=== PATIENT | male | born 1965 | race American Indian/Alaskan Native ===

== ENCOUNTER 2017-10-05 07:40 | Observation (INO) | payer MEDICAID, OTHER ==
[2017-10-05 07:40] VITALS: BMI 17.1
--- NOTE | 2017-10-05 08:41 | ED PDOC ---
HPI: Chest Pain Time Seen by Provider: 10/05/17 08:11 Chief Complaint (Nursing): Chest Pain Additional Complaint(s): 52-year-old male, with no significant past medical history, presenting for evaluation of left sided sharp chest pain since this morning. Patient reports similar previous episodes. Denies any shortness of breath or cough. While in ED , patient was diaphoretic and bradycardic with heart rate of 42. PMD: Dr. Maritza Nassar Past Medical History Reviewed: Historical Data, Nursing Documentation, Vital Signs Vital Signs: Last Vital Signs Temp 97.0 F L 10/05/17 07:57 Pulse 48 L 10/05/17 08:00 Resp 20 10/05/17 07:57 BP 128/70 10/05/17 08:00 Pulse Ox 94 L 10/05/17 08:42 - Medical History PMH: Depression, Hypercholesterolemia Denies: Alzheimer's Disease, Asthma, Atrial Fibrillation, Bronchitis, CAD, Cardia Arrhythmia, CHF, COPD, Dementia, Emphysema, HIV, HTN, Hyperthyroidism, Hypothyroidism, Kidney Stones, Migraine, Mitral Valve Prolapse, Multiple Sclerosis, Parkinson's Disease, Peripheral Edema, Pneumonia, Pulmonary Embolism , Chronic Kidney Disease, Seizures, Sleep Apnea, TIA - Surgical History Surgical History: No Surg Hx Denies: Pacemaker - Family History Family History: States: [place], CAD, Diabetes, Hypertension - Immunization History Hx Tetanus Toxoid Vaccination: No Hx Influenza Vaccination: No Hx Pneumococcal Vaccination: No - Home Medications Home Medications: Ambulatory Orders Medication Instructions Recorded No Known Home Med 04/27/16 - Allergies Allergies/Adverse Reactions: Allergies Allergy/AdvReac Type Severity Reaction Status Date / Time No Known Allergies Allergy Verified 10/05/17 08:07 Review of Systems ROS Statement: Except As Marked, All Systems Reviewed And Found Negative Constitutional: Positive for: Sweats Cardiovascular: Positive for: Chest Pain, Other (bradycardia) Respiratory: Negative for: Cough, Shortness of Breath Physical Exam - Reviewed Nursing Documentation Reviewed: Yes Vital Signs Reviewed: Yes - Physical Exam Appears: Positive for: Non-toxic, No Acute Distress Head Exam: Positive for: ATRAUMATIC, NORMAL INSPECTION, NORMOCEPHALIC Skin: Positive for: Normal Color, Warm, Dry. Negative for: Rash Eye Exam: Positive for: EOMI, Normal appearance, PERRL ENT: Positive for: Normal ENT Inspection Neck: Positive for: Normal, Painless ROM, Supple Cardiovascular/Chest: Positive for: Bradycardia (regular rhythm) Respiratory: Positive for: Normal Breath Sounds. Negative for: Respiratory Distress Gastrointestinal/Abdominal: Positive for: Normal Exam, Soft. Negative for: Tenderness Back: Positive for: Normal Inspection. Negative for: L CVA Tenderness, R CVA Tenderness, Vertebral Tenderness Extremity: Positive for: Normal ROM. Negative for: Pedal Edema, Deformity Neurologic/Psych: Positive for: Alert, Oriented - Laboratory Results Result Diagrams: 10/05/17 08:22 10/05/17 08:22 - ECG O2 Sat by Pulse Oximetry: 94 (RA) Pulse Ox Interpretation: Normal Medical Decision Making Medical Decision Making: Plan: -EKG -CMP -Drug screen -Troponin I -Urine dipstick -CBC -CXR -Reevaluation Scribe Attestation: Documented by Javed Tripathi, acting as a scribe for Krish Mcgee MD. Provider Scribe Attestation: All medical record entries made by the Scribe were at my direction and personally dictated by me. I have reviewed the chart and agree that the record accurately reflects my personal performance of the history, physical exam, medical decision making, and the department course for this patient. I have also personally directed, reviewed, and agree with the discharge instructions and disposition. Disposition - Clinical Impression Clinical Impression: Chest pain - Patient ED Disposition Is Patient to be Admitted: Yes - Disposition Disposition Time: 09:53 Condition: FAIR Forms: [employer] (Occitan) - Pt Status Changed To: Hospital Disposition Of: Observation - POA Present On Arrival: None
--- NOTE | 2017-10-05 09:05 | RAD ---
Date of service: 10/05/2017 HISTORY: Chest pain COMPARISON: Portable chest 01/21/2016. TECHNIQUE: Chest PA and lateral FINDINGS: LUNGS: No active pulmonary disease. PLEURA: No significant pleural effusion identified. No pneumothorax apparent. CARDIOVASCULAR: Cardiac silhouette appears upper limits normal size. OSSEOUS STRUCTURES: No significant abnormalities. VISUALIZED UPPER ABDOMEN: Normal. OTHER FINDINGS: None. IMPRESSION: No interval acute cardiopulmonary disease appreciated. Upper limits normal cardiac size reiterated. No pulmonary vascular congestion.
[2017-10-05 09:23] LABS: BASO % 0.5 % (0.0-2.0); EOS # 0.1 K/uL (0.0-0.7); EOS % 1.3 % (0.0-4.0); HEMOGLOBIN 14.6 g/dL (12.0-18.0); LYMPH # 1.5 K/uL (1.0-4.3); MEAN CELL VOLUME 89.9 fl (80.0-94.0); MEAN CORPUSCULAR HEMOGLOBIN 29.8 pg (27.0-31.0); MEAN CORPUSCULAR HGB CONC 33.2 g/dL (33.0-37.0); MEAN PLATELET VOLUME 8.3 fl (7.2-11.7); MONO # 0.6 K/uL (0.0-0.8); MONO % 14.9 % (0.0-10.0); NEUT # 1.8 K/uL (1.8-7.0); NEUT % 46.3 % (50.0-75.0); RBC 4.91 Mil/uL (4.40-5.90); RED CELL DISTRIBUTION WIDTH 12.9 % (11.5-14.5)
[2017-10-05 09:37] LABS: ALB/GLOB RATIO 1.2 (1.0-2.1); ALBUMIN 4.3 g/dL (3.5-5.0); ALT/SGPT 42 U/L (21-72); AST/SGOT 35 U/L (17-59); BLOOD UREA NITROGEN 22 mg/dl (9-20); GFR AFRICAN-AMERICAN > 60; GFR NON-AFRICAN AMERICAN > 60
[2017-10-05 11:03] LABS: BARBITURATES, UR NEGATIVE (NEGATIVE); BENZODIAZEPINES, UR NEGATIVE (NEGATIVE); OPIATES, UR POSITIVE (NEGATIVE); PHENCYCLIDINE, UR NEGATIVE (NEGATIVE)
[2017-10-06 05:51] LABS: BLOOD UREA NITROGEN 24 mg/dl (9-20); CALCIUM 9.9 mg/dL (8.4-10.2); GFR AFRICAN-AMERICAN > 60; GFR NON-AFRICAN AMERICAN > 60; HDL CHOLESTEROL 46 MG/DL (30-70)
[2017-10-06 06:01] LABS: LDL CHOLESTEROL 121 mg/dL (0-129)
[2017-10-06 06:08] LABS: FREE T4 0.61 ng/dL (0.78-2.19)
[2017-10-06 06:20] LABS: T3 1.16 nmol/L (1.49-2.60)
[2017-10-06 08:09] VITALS: RESP 20; TEMP 98.2
--- NOTE | 2017-10-06 08:20 | CP.PCM.HP ---
<BlakelyBradyo - Last Filed: 10/06/17 12:05> History of Present Illness - History of Present Illness History of Present Illness: 50 y/o m with no pertinent PMHx presented to ED yesterday left sided chest pain. Pt with similar previous episodes with no velar etiology found. Today, pt was seen and examined with Dr jean by bedside, pt reports chest pain have improved. Upon interrogation on positive opiates on UDS, pt explained that a friend of his gave him Percocet for the chest pain. Pt denies SOB, has been afebrile with No acute events overnight. --ECHOcardiogram on 06/03/17 showed normal LV systolic and disatolic functions, LVFF 55-60%. --MUGA-Stress test on 06/03/17 showed mild impaired LV systolic function, EF 42 % from 50% at rest, hypokinesis on lateral wall, no ischemia. Present on Admission - Present on Admission Any Indicators Present on Admission: No Review of Systems - Constitutional Constitutional: absent: Anorexia, Chills, Fever - EENT Eyes: absent: Change in Vision Nose/Mouth/Throat: absent: Epistaxis, Nasal Congestion, Throat Swelling - Cardiovascular Cardiovascular: Chest Pain. absent: Dyspnea on Exertion, Orthopnea, Paroxysmal Nocturnal Dyspnea - Respiratory Respiratory: absent: Cough, Dyspnea, Hemoptysis - Gastrointestinal Gastrointestinal: absent: Abdominal Pain, Hematochezia, Nausea, Vomiting Past Patient History - Infectious Disease Hx of Infectious Diseases: None - Past Medical History & Family History Past Medical History?: Yes - Past Social History Smoking Status: Never Smoked - CARDIAC Hx Atrial Fibrillation: No Hx Cardia Arrhythmia: No Hx Congestive Heart Failure: No Hx Hypercholesterolemia: Yes Hx Hypertension: No Hx Mitral Valve Prolapse: No Hx Pacemaker: No Hx Peripheral Edema: No - PULMONARY Hx Asthma: No Hx Bronchitis: No Hx Chronic Obstructive Pulmonary Disease (COPD): No Hx Emphysema: No Hx Pneumonia: No Hx Pulmonary Embolism: No Hx Sleep Apnea: No - NEUROLOGICAL Hx Alzheimer's Disease: No Hx Dementia: No Hx Migraine: No Hx Multiple Sclerosis: No Hx Parkinson's Disease: No Hx Seizures: No Hx Transient Ischemic Attacks (TIA): No - HEENT Hx HEENT Problems: No Hx Blind: No Hx Cataracts: No Hx Deafness: No Hx Difficulty Chewing: No Hx Epistaxis: No Hx Glaucoma: No Hx Macular Degeneration: No - RENAL Hx Chronic Kidney Disease: No Hx Kidney Stones: No - ENDOCRINE/METABOLIC Hx Hyperthyroidism: No Hx Hypothyroidism: No - HEMATOLOGICAL/ONCOLOGICAL Hx Human Immunodeficiency Virus (HIV): No - INTEGUMENTARY Hx Dermatological Problems: No - MUSCULOSKELETAL/RHEUMATOLOGICAL Hx Falls: No - GASTROINTESTINAL Hx Nausea: Yes - GENITOURINARY/GYNECOLOGICAL Hx Genitourinary Disorders: No - PSYCHIATRIC Hx Depression: Yes Hx Substance Use: No (Patient denies) - SURGICAL HISTORY Hx Surgeries: No - ANESTHESIA Hx Anesthesia: No Meds Allergies/Adverse Reactions: Allergies Allergy/AdvReac Type Severity Reaction Status Date / Time No Known Allergies Allergy Verified 10/05/17 08:07 Physical Exam - Constitutional Appears: No Acute Distress - Head Exam Head Exam: ATRAUMATIC, NORMAL INSPECTION - Eye Exam Eye Exam: EOMI, Normal appearance - ENT Exam ENT Exam: Mucous Membranes Moist - Neck Exam Neck exam: Positive for: Full Rom, Normal Inspection. Negative for: Meningismus - Respiratory Exam Respiratory Exam: Clear to Auscultation Bilateral, NORMAL BREATHING PATTERN - Cardiovascular Exam Cardiovascular Exam: REGULAR RHYTHM, +S1, +S2 - GI/Abdominal Exam GI & Abdominal Exam: Soft. absent: Distended, Guarding, Tenderness - Extremities Exam Extremities exam: Positive for: full ROM, normal inspection - Neurological Exam Neurological exam: Alert, Oriented x3 Results - Vital Signs Recent Vital Signs: Last Vital Signs Temp 98.2 F 10/06/17 08:00 Pulse 58 L 10/06/17 08:00 Resp 20 10/06/17 08:00 BP 135/83 10/06/17 08:00 Pulse Ox 98 10/06/17 08:00 - Labs Result Diagrams: 10/05/17 08:22 10/06/17 04:20 Labs: Laboratory Results - last 24 hr 10/05/17 10/05/17 10/05/17 08:22 08:22 10:26 WBC 4.0 L RBC 4.91 Hgb 14.6 D Hct 44.1 MCV 89.9 MCH 29.8 MCHC 33.2 RDW 12.9 Plt Count 256 MPV 8.3 Neut % (Auto) 46.3 L Lymph % (Auto) 37.0 [place] % (Auto) 14.9 H Eos % (Auto) 1.3 Baso % (Auto) 0.5 Neut # (Auto) 1.8 Lymph # (Auto) 1.5 [place] # (Auto) 0.6 Eos # (Auto) 0.1 Baso # (Auto) 0.0 ESR Sodium 140 Potassium 4.4 Chloride 107 Carbon Dioxide 27 Anion Gap 10 BUN 22 H Creatinine 1.1 Est GFR ( Amer) > 60 Est GFR (Non-Af Amer) > 60 Random Glucose 121 H Hemoglobin A1c Calcium 10.0 Magnesium Total Bilirubin 0.5 AST 35 ALT 42 Alkaline Phosphatase 54 Troponin I < 0.0120 Total Protein 7.8 Albumin 4.3 Globulin 3.6 Albumin/Globulin Ratio 1.2 Triglycerides Cholesterol LDL Cholesterol Direct HDL Cholesterol Free T4 Total T3 TSH 3rd Generation Urine Opiates Screen Positive H Urine Methadone Screen Negative Ur Barbiturates Screen Negative Ur Phencyclidine Scrn Negative Ur Amphetamines Screen Negative U Benzodiazepines Scrn Negative U Oth Cocaine Metabols Negative U Cannabinoids Screen Negative 10/05/17 10/05/17 10/05/17 15:24 15:24 22:30 WBC RBC Hgb Hct MCV MCH MCHC RDW Plt Count MPV Neut % (Auto) Lymph % (Auto) [place] % (Auto) Eos % (Auto) Baso % (Auto) Neut # (Auto) Lymph # (Auto) [place] # (Auto) Eos # (Auto) Baso # (Auto) ESR Sodium Potassium Chloride Carbon Dioxide Anion Gap BUN Creatinine Est GFR ( Amer) Est GFR (Non-Af Amer) Random Glucose Hemoglobin A1c 5.9 Calcium Magnesium Total Bilirubin AST ALT Alkaline Phosphatase Troponin I < 0.0120 < 0.0120 Total Protein Albumin Globulin Albumin/Globulin Ratio Triglycerides Cholesterol LDL Cholesterol Direct HDL Cholesterol Free T4 Total T3 TSH 3rd Generation 0.70 Urine Opiates Screen Urine Methadone Screen Ur Barbiturates Screen Ur Phencyclidine Scrn Ur Amphetamines Screen U Benzodiazepines Scrn U Oth Cocaine Metabols U Cannabinoids Screen 10/06/17 10/06/17 10/06/17 04:20 04:20 04:20 WBC RBC Hgb Hct MCV MCH MCHC RDW Plt Count MPV Neut % (Auto) Lymph % (Auto) [place] % (Auto) Eos % (Auto) Baso % (Auto) Neut # (Auto) Lymph # (Auto) [place] # (Auto) Eos # (Auto) Baso # (Auto) ESR 10 Sodium 139 Potassium 4.1 Chloride 105 Carbon Dioxide 26 Anion Gap 12 BUN 24 H Creatinine 1.1 Est GFR ( Amer) > 60 Est GFR (Non-Af Amer) > 60 Random Glucose 96 Hemoglobin A1c Calcium 9.9 Magnesium 2.0 Total Bilirubin AST ALT Alkaline Phosphatase Troponin I Total Protein Albumin Globulin Albumin/Globulin Ratio Triglycerides 84 D Cholesterol 211 H LDL Cholesterol Direct 121 HDL Cholesterol 46 Free T4 0.61 L Total T3 1.16 L TSH 3rd Generation 1.51 Urine Opiates Screen Urine Methadone Screen Ur Barbiturates Screen Ur Phencyclidine Scrn Ur Amphetamines Screen U Benzodiazepines Scrn U Oth Cocaine Metabols U Cannabinoids Screen Assessment & Plan - Assessment and Plan (Free Text) Assessment: 52 y/o M with No pertinent PMHx admitted for evaluation and management of chest pain. --Cardiology on board, Dr Rae. Awaiting recommendations. --Troponin neg x3. --Serum TSH, vitamin B 12 and HbA1 ordered. --Continue management as ordered. <Jacobo Jean K - Last Filed: 10/07/17 16:13> Results - Vital Signs Recent Vital Signs: Last Vital Signs Temp 98.2 F 10/06/17 12:00 Pulse 52 L 10/06/17 12:00 Resp 20 10/06/17 12:00 BP 121/70 10/06/17 12:00 Pulse Ox 97 10/06/17 12:00 - Labs Result Diagrams: 10/05/17 08:22 10/06/17 04:20 Assessment & Plan - Assessment and Plan (Free Text) Assessment: Patient was personally seen and examined by me in rounds with residents. Available labs and diagnostic data reviewed. Case, Patient's condition and management plan discussed with residents in rounds. Agree with resident's progress note. Plan: As ordered.
--- NOTE | 2017-10-06 09:10 | CARD ---
APPROVED REPORT Date of service: 10/05/2017 EKG Measurement Heart [id number] <Conclusion> Normal sinus rhythm with sinus arrhythmia Normal ECG
[2017-10-06 13:04] VITALS: BP 121/70; PULSE 52; O2SAT 97
== END 2017-10-06 14:51 | disposition left against medical advice (07) ==
LOC: H.ER 07:40 → H.ERHOLD 09:59 → H.TEL 13:48
PROVIDERS: ADMIT Internal Medicine; ATTEND Internal Medicine
DX: R07.9 Chest pain, unspecified (principal); E78.00 Pure hypercholesterolemia, unspecified
CPT/HCPCS: 36415; 71046; 80048; 80053; 80061; 80324; 80345; 80346; 80349; 80353; 80358; 80361; 82607; 83036; 83735; 83992; 84439; 84443; 84480; 84484; 85025; 85651; 86140; 93005; 96374; 99283; G0378; J2405

== ENCOUNTER 2017-12-18 19:58 | Emergency (ER) | payer MEDICAID, OTHER ==
[2017-12-18 19:58] VITALS: BMI 31.3
[2017-12-18 20:08] VITALS: BP 134/79; PULSE 89; RESP 16; TEMP 98; O2SAT 95
--- NOTE | 2017-12-18 20:38 | ED PDOC ---
HPI: CCC, URI, Sore Throat Time Seen by Provider: 12/18/17 20:10 Chief Complaint (Nursing): Cough, Cold, Congestion Chief Complaint (Provider): Cough, cold, congestion History Per: Patient History/Exam Limitations: no limitations Onset/Duration Of Symptoms: Days (3x) Current Symptoms Are (Timing): Still Present Associated Symptoms: Cough (productive of white/yellow phlegm), Nasal Congestion. denies: Other (chest pain, shortness of breath) Severity: Moderate Additional Complaint(s): 52 year old male with no pertinent past medical history presents to the ED with complaints of a cough that started 3x days ago. Patient denies taking any daily medications. Patient reports having associated symptoms of coughing productive of white/yellow phlegm in the mornings, which improves throughout the day, and nasal congestion. Patient denies having chest pain or shortness of breath. PMD: None provided. Past Medical History Reviewed: Historical Data, Nursing Documentation, Vital Signs Vital Signs: Last Vital Signs Temp 98 F 12/18/17 20:06 Pulse 89 12/18/17 20:06 Resp 16 12/18/17 20:06 BP 134/79 12/18/17 20:06 Pulse Ox 95 12/18/17 20:06 - Medical History PMH: Depression, Gastritis, Hypercholesterolemia Denies: Alzheimer's Disease, Asthma, Atrial Fibrillation, Bronchitis, CAD, Cardia Arrhythmia, CHF, COPD, Dementia, Emphysema, HIV, HTN, Hyperthyroidism, Hypothyroidism, Kidney Stones, Migraine, Mitral Valve Prolapse, Multiple Sclerosis, Parkinson's Disease, Peripheral Edema, Pneumonia, Pulmonary Embolism, Chronic Kidney Disease, Seizures, Sleep Apnea, TIA - Surgical History Surgical History: Denies: Pacemaker - Family History Family History: States: [place], CAD, Diabetes, Hypertension - Social History Alcohol: None Drugs: Denies - Immunization History Hx Tetanus Toxoid Vaccination: No Hx Influenza Vaccination: No Hx Pneumococcal Vaccination: No - Home Medications Home Medications: Ambulatory Orders Medication Instructions Recorded levoFLOXacin [Levaquin] 500 mg PO DAILY #7 tab 12/18/17 - Allergies Allergies/Adverse Reactions: Allergies Allergy/AdvReac Type Severity Reaction Status Date / Time No Known Allergies Allergy Verified 12/03/17 10:45 Review of Systems ROS Statement: Except As Marked, All Systems Reviewed And Found Negative ENT: Positive for: Nose Congestion Cardiovascular: Negative for: Chest Pain Respiratory: Positive for: Cough (productive of white/yellow phlegm). Negative for: Shortness of Breath Physical Exam - Reviewed Nursing Documentation Reviewed: Yes Vital Signs Reviewed: Yes - Physical Exam Appears: Positive for: Well, Non-toxic, No Acute Distress Head Exam: Positive for: ATRAUMATIC, NORMOCEPHALIC Skin: Positive for: Normal Color Eye Exam: Positive for: Normal appearance ENT: Positive for: Normal ENT Inspection Cardiovascular/Chest: Positive for: Regular Rate, Rhythm Respiratory: Positive for: Normal Breath Sounds Neurologic/Psych: Positive for: Alert, Oriented (3x) - ECG O2 Sat by Pulse Oximetry: 95 (RA) Pulse Ox Interpretation: Normal Medical Decision Making Medical Decision Makin:10 Initial impression: 52 year old male with a cough. Scribe Attestation: Documented by Robyn Jasso, acting as a scribe for Lisa Hernandez PA-C. Provider Scribe Attestation: All medical record entries made by the Scribe were at my direction and personally dictated by me. I have reviewed the chart and agree that the record accurately reflects my personal performance of the history, physical exam, medical decision making, and the department course for this patient. I have also personally directed, reviewed, and agree with the discharge instructions and disposition. Disposition - Clinical Impression Clinical Impression: Cough - Patient ED Disposition Is Patient to be Admitted: No Counseled Patient/Family Regarding: Diagnosis, Need For Followup, Rx Given - Disposition Disposition: Routine/Home Disposition Time: 20:38 Condition: GOOD Prescriptions: levoFLOXacin [Levaquin] 500 mg PO DAILY #7 tab Instructions: Cough in Adults Forms: [employer] (Bengali)
== END 2017-12-18 20:59 | disposition home or self-care (01) ==
LOC: H.ER 19:58
DX: R05 Cough (principal)

== ENCOUNTER 2018-03-11 18:45 | Emergency (ER) | payer MEDICAID, OTHER ==
[2018-03-11 18:46] VITALS: BMI 31.3
[2018-03-11 18:56] VITALS: O2SAT 100
--- NOTE | 2018-03-11 19:16 | ED PDOC ---
HPI: General Adult Time Seen by Provider: 03/11/18 18:50 Chief Complaint (Nursing): Medical Clearance Chief Complaint (Provider): Medical Clearance History Per: Patient History/Exam Limitations: no limitations Onset/Duration Of Symptoms: Hrs Current Symptoms Are (Timing): Better Additional Complaint(s): 52 year old male presents to the ED for medical clearance for incarceration. Patient does not report of any other complaints in ED. PMD: no family provider Past Medical History Reviewed: Historical Data, Nursing Documentation, Vital Signs Vital Signs: Last Vital Signs Temp 97.7 F 03/11/18 18:54 Pulse 87 03/11/18 18:54 Resp 17 03/11/18 18:54 BP 144/83 03/11/18 18:54 Pulse Ox 100 03/11/18 18:54 - Medical History PMH: Depression, Gastritis, Hypercholesterolemia Denies: Alzheimer's Disease, Asthma, Atrial Fibrillation, Bronchitis, CAD, Cardia Arrhythmia, CHF, COPD, Dementia, Emphysema, HIV, HTN, Hyperthyroidism, Hypothyroidism, Kidney Stones, Migraine, Mitral Valve Prolapse, Multiple Sclerosis, Parkinson's Disease, Peripheral Edema, Pneumonia, Pulmonary Embolism, Chronic Kidney Disease, Seizures, Sleep Apnea, TIA - Surgical History Surgical History: Denies: Pacemaker - Family History Family History: States: [place], CAD, Diabetes, Hypertension - Immunization History Hx Tetanus Toxoid Vaccination: No Hx Influenza Vaccination: No Hx Pneumococcal Vaccination: No - Home Medications Home Medications: Ambulatory Orders Medication Instructions Recorded levoFLOXacin [Levaquin] 500 mg PO DAILY #7 tab 12/18/17 - Allergies Allergies/Adverse Reactions: Allergies Allergy/AdvReac Type Severity Reaction Status Date / Time No Known Allergies Allergy Verified 12/03/17 10:45 Review of Systems ROS Statement: Except As Marked, All Systems Reviewed And Found Negative Constitutional: Negative for: Fever, Chills Cardiovascular: Negative for: Chest Pain Respiratory: Negative for: Cough, Shortness of Breath Gastrointestinal: Negative for: Nausea, Vomiting, Abdominal Pain, Diarrhea Skin: Negative for: Rash Psych: Negative for: Suicidal ideation, Other (homicidal ideation) Physical Exam - Reviewed Nursing Documentation Reviewed: Yes Vital Signs Reviewed: Yes - Physical Exam Appears: Positive for: Well, Non-toxic, No Acute Distress Head Exam: Positive for: ATRAUMATIC, NORMAL INSPECTION, NORMOCEPHALIC Skin: Positive for: Normal Color, Warm, Dry. Negative for: Rash Eye Exam: Positive for: EOMI, Normal appearance, PERRL ENT: Positive for: Normal ENT Inspection Neck: Positive for: Normal, Painless ROM, Supple. Negative for: Decreased ROM Cardiovascular/Chest: Positive for: Regular Rate, Rhythm. Negative for: Murmur Respiratory: Positive for: Normal Breath Sounds. Negative for: Decreased Breath Sounds, Wheezing, Respiratory Distress Gastrointestinal/Abdominal: Positive for: Normal Exam, Soft. Negative for: Tenderness, Guarding Back: Positive for: Normal Inspection Extremity: Positive for: Normal ROM. Negative for: Tenderness, Pedal Edema, Deformity Neurologic/Psych: Positive for: Alert, Oriented (x3), Other (Pt denies suicidal or homicidal ideation or intent). Negative for: Motor/Sensory Deficits - ECG O2 Sat by Pulse Oximetry: 100 (RA) Pulse Ox Interpretation: Normal Medical Decision Making Medical Decision Making: Time: 1849 Pt is medically and psychologically cleared for incarceration Scribe Attestation: Documented by Shanti Ward, acting as a scribe Gary Walsh PA-C Provider Scribe Attestation: All medical record entries made by the Scribe were at my direction and personally dictated by me. I have reviewed the chart and agree that the record accurately reflects my personal performance of the history, physical exam, medical decision making, and the department course for this patient. I have also personally directed, reviewed, and agree with the discharge instructions and disposition. Disposition - Clinical Impression Clinical Impression: Medical clearance for incarceration - Patient ED Disposition Is Patient to be Admitted: No Discussed With DrRodrigo: Maria Luz Moran (opiod addiction) - Disposition Disposition: Discharged/Transfer to Law Enforcement Disposition Time: 20:54 Condition: STABLE Additional Instructions: The patient is medically and psychologically cleared for incarceration Instructions: General (DC) Forms: [employer] (Kyrgyz)
[2018-03-11 21:17] VITALS: BP 132/80; PULSE 84; RESP 18; TEMP 98.2
== END 2018-03-11 21:15 | disposition home or self-care (01) ==
LOC: H.ER 18:45
DX: E78.00 Pure hypercholesterolemia, unspecified; F32.9 Major depressive disorder, single episode, unspecified; F11.20 Opioid dependence, uncomplicated

== ENCOUNTER 2018-06-19 14:02 | Emergency (ER) | payer MEDICAID, OTHER ==
[2018-06-19 14:02] VITALS: BMI 31.3
[2018-06-19 14:12] VITALS: BP 123/76; PULSE 77; RESP 16; TEMP 99; O2SAT 98
--- NOTE | 2018-06-19 14:54 | ED PDOC ---
HPI: Skin/Bite Injury Time Seen by Provider: 06/19/18 14:40 Chief Complaint (Nursing): Abnormal Skin Integrity Chief Complaint (Provider): Abnormal Skin integrity History Per: Patient History/Exam Limitations: no limitations Onset/Duration Of Symptoms: Days (3x months) Current Symptoms Are (Timing): Still Present Quality Of Symptoms: Itching (slight) Severity: Moderate Additional Complaint(s): 52 year old male with no pertinent past medical history presents to the ED for an evaluation of a rash to the upper aspect of the torso and neck progressively worsening for 3x months. Patient states that around this time of year, every year, he gets this rash. Patient states that he has been diagnosed with "tinea something" in the past. Patient denies having fevers, nausea, vomiting, and abdominal pain. Patient reports that he has slight itching. Patient states that he does work out and keeps his sweaty clothing on. Patient denies having any respiratory complaints or chest pain. PMD: Siobhan Alexander MD Past Medical History Reviewed: Historical Data, Nursing Documentation, Vital Signs Vital Signs: Last Vital Signs Temp 99 F 06/19/18 14:07 Pulse 77 06/19/18 14:07 Resp 16 06/19/18 14:07 BP 123/76 06/19/18 14:07 Pulse Ox 98 06/19/18 14:07 [facility] Report Viewed: Yes Primary Care Provider: Siobhan Alexander - Medical History PMH: Depression, Gastritis, Hypercholesterolemia Denies: Alzheimer's Disease, Asthma, Atrial Fibrillation, Bronchitis, CAD, Cardia Arrhythmia, CHF, COPD, Dementia, Diabetes, Emphysema, Hepatitis, HIV, HTN, Hyperthyroidism, Hypothyroidism, Kidney Stones, Migraine, Mitral Valve Prolapse, Multiple Sclerosis, Parkinson's Disease, Peripheral Edema, Pneumonia, Pulmonary Embolism, Chronic Kidney Disease, Seizures, Sexually Transmitted Disease, Sleep Apnea, TIA - Surgical History Surgical History: Denies: Pacemaker - Family History Family History: States: [place], CAD, Diabetes, Hypertension - Immunization History Hx Tetanus Toxoid Vaccination: No Hx Influenza Vaccination: No Hx Pneumococcal Vaccination: No - Home Medications Home Medications: Ambulatory Orders Medication Instructions Recorded Ketoconazole 30 gm TP HS #1 tube 06/19/18 - Allergies Allergies/Adverse Reactions: Allergies Allergy/AdvReac Type Severity Reaction Status Date / Time No Known Allergies Allergy Verified 06/19/18 14:08 Review of Systems ROS Statement: Except As Marked, All Systems Reviewed And Found Negative Constitutional: Negative for: Fever Cardiovascular: Negative for: Chest Pain Respiratory: Negative for: Shortness of Breath Gastrointestinal: Negative for: Nausea, Vomiting, Abdominal Pain Skin: Positive for: Rash (to upper aspect of torso and neck with slight itching) Physical Exam - Reviewed Nursing Documentation Reviewed: Yes Vital Signs Reviewed: Yes - Physical Exam Appears: Positive for: Well, Non-toxic, No Acute Distress Head Exam: Positive for: ATRAUMATIC, NORMOCEPHALIC Skin: Positive for: Warm, Dry, Rash (discoloration of upper aspect of chest. areas of high pigmentation, some circular, scattered. ) Cardiovascular/Chest: Positive for: Regular Rate, Rhythm Respiratory: Positive for: Normal Breath Sounds Neurological/Psych: Positive for: Awake, Alert, Oriented (3x) - ECG O2 Sat by Pulse Oximetry: 98 (RA) Pulse Ox Interpretation: Normal Medical Decision Making Medical Decision Makin:40 Initial impression: 52 year old male with tinea versicolor Patient is medically stable, and requires no further treatment in the ED at this time. Patient will be discharged home with Rx for ketoconazole. Patient educated on non pharmacological therapies including removing damp clothing to reduce progression of fungal rash. Patient given a referral for a dosier operator. Counseling was provided and all questions were answered regarding diagnosis and need for follow up with dosier operator. There is agreement and understanding of discharge plan. Return if symptoms persist or worsen. Scribe Attestation: Documented by Robyn Jasso, acting as a scribe for Freda Cortez APN. Provider Scribe Attestation: All medical record entries made by the Scribe were at my direction and personally dictated by me. I have reviewed the chart and agree that the record accurately reflects my personal performance of the history, physical exam, medical decision making, and the department course for this patient. I have also personally directed, reviewed, and agree with the discharge instructions and disposition. Disposition - Clinical Impression Clinical Impression: Tinea versicolor - Patient ED Disposition Is Patient to be Admitted: No Counseled Patient/Family Regarding: Diagnosis, Need For Followup, Rx Given - Disposition Referrals: Mikhail Hernandez [Medical Doctor] - Disposition: Routine/Home Disposition Time: 14:30 Condition: GOOD Prescriptions: Ketoconazole 30 gm TP HS #1 tube Instructions: Tinea Versicolor Print Language: BENGALI - POA Present On Arrival: None
== END 2018-06-19 14:55 | disposition home or self-care (01) ==
LOC: H.ER 14:02
DX: B36.0 Pityriasis versicolor (principal); B35.9 Dermatophytosis, unspecified; E78.00 Pure hypercholesterolemia, unspecified